=== PATIENT | female | born 1945 | race Caucasian/White ===

== ENCOUNTER → 2019-03-19 | Outpatient (CLI) | payer MEDICARE, OTHER ==
[~2019-03-19] MED LIST: *PREMTA OR; ACET65TA OR; ALRE0.5S OU; BISA5TA OR; CELE1CAP4 OR; CELE1CAP4 PO; COUM1TAB18 OR; COUM2.5T17 PO; CRANPOW2 PO; CRES5TAB OR; DOXY100C PO; GENT0.3G OU; GLUCTAB6 PO; LIDO5DIS EX; LIDO5DIS41 TD; MILKSUS OR; OMEP20CA4 PO; OXYC10TA97 OR; PENT10CA PO; PERC5TAB12 PO; PERC5TAB8 OR; PERC7.5T8 OR; PULM90IN INH; SENN8.6T5 OR; SKEL800T5 OR; SYNT112T OR; TRAM50TA2 OR; TYLENOL ARTHIRITIS PO; VITA200016 PO; VITA200T4 PO; VITAMIN E PO; ZADITOR OU; ZOLO50TA OR; ZOLO50TA PO; [UNRECOGNIZED DRUG - OTHER]; [UNRECOGNIZED DRUG - OTHER] INH; mirilax OR; tylenol arthritis
--- NOTE | 2019-03-19 10:47 | REP ---
HIDA SCAN WITH GALLBLADDER EJECTION FRACTION: Following the intravenous administration of 6.6 mCi of technetium-99m mebrofenin, multiple images of the right upper quadrant are performed every 5 minutes for a period of 1 hour. Radiotracer uptake in the liver is fairly homogeneous. There is visualization of the gallbladder at about 15 minutes post injection. There is biliary to bowel transit at 55 to 60 minutes with no scintigraphic evidence of cholecystitis. At the 1 hour laly 8 ounces of Ensure Enlive is ingested and further imaging performed for 1 hour. Gallbladder ejection fraction is calculated to be 72% which is normal. IMPRESSION: Normal gallbladder ejection fraction. Electronically Signed by Juan David Tirado MD 03/19/2019 03:50 P
== END ==
LOC: M RAD 07:21
PROVIDERS: ATTEND Surgery
DX: R10.9 Unspecified abdominal pain (principal)
CPT/HCPCS: 78227; A9537; J2805

== ENCOUNTER → 2019-05-28 | Outpatient (CLI) | payer MEDICARE, OTHER ==
[~2019-05-28] MED LIST changes: +E-Z-GAS II EFFERVESCENT PACKET (SODIUM BICARB./CITRIC ACID/SIMETHICONE) As Ordered ONE; +E-Z-HD 98% w/w 340GM SUSP BTL As Ordered ONE; +E-Z-PAQUE 96% w/w SUSP 176GM BTL As Ordered ONE; +OMEP1CAP73 PO; -OMEP20CA4 PO
--- NOTE | 2019-05-28 16:20 | REP ---
Esophagram The procedure was performed under the direct supervision of Dr. Sanches. The images were reviewed with Dr. Sanches. A single view PA chest x-ray is submitted as a virtual office assistant film. The superior mediastinal structures are midline. The heart size is within normal limits. The lungs are clear. There is an S-shaped thoracic rotoscoliotic curve. There is an old impaction fracture of the proximal humerus on the right with, likely, chronic dislocation. Liquid barium and gas producing granules were given in the erect position as well as liquid barium in the prone oblique positions in order to perform a double contrast esophagram examination. The oral and pharyngeal stages of deglutition are unremarkable. There are esophageal transport there are tertiary waves demonstrated. There is no esophagitis, stricture, mucosal ring or hiatal hernia. There is gastroesophageal reflux demonstrated to above the level of the lory. Impression: 1. Tertiary waves. 2. There is gastroesophageal reflux demonstrated to above the level of the lory. Of fluoro time data for this examination was lost due to technical error. Electronically Signed by THONY Strong 05/28/2019 03:11 P Electronically Signed by Michi Sanches MD 05/28/2019 04:11 P
== END ==
LOC: M RAD 09:32
PROVIDERS: ATTEND Surgery
DX: K21.9 Gastro-esophageal reflux disease without esophagitis (principal)

== ENCOUNTER 2019-06-22 09:20 | Day surgery (SDC) | payer MEDICARE, OTHER ==
[~2019-06-22] VITALS: Ht 165.1 cm; Wt 68.1 kg
[~2019-06-22 09:20] MED LIST changes: +ACIDTAB3 PO; +BUDE180INH INH; +CELE100C PO; +CETI10CH PO; +CRES5TAB PO; +CVS1000C17 PO; +DOXY-350 PO; -E-Z-GAS II EFFERVESCENT PACKET (SODIUM BICARB./CITRIC ACID/SIMETHICONE) As Ordered ONE; -E-Z-HD 98% w/w 340GM SUSP BTL As Ordered ONE; -E-Z-PAQUE 96% w/w SUSP 176GM BTL As Ordered ONE; +FLON1SPR; +KEFL250C11 PO; +LR 1,000 ML IV ONE; +LevoFLOXacin IV 500 MG in IV 1 EA IV ONE; +META1TAB22 PO; +PRESCAP PO; +QC A650T3 PO; +SALMDISK INH; +SYNT100T PO; +TAGA200T3 PO; +VITA30004 PO; +ZOFR4TAB16 PO; +[UNRECOGNIZED DRUG - CODE] OP
[2019-06-22] MEDS ORDERED: METOCLOPRAMIDE INJ 10MG/2ML VIAL (J2765) As Ordered ONE (09:30)
[2019-06-22] MEDS ORDERED: propofoL 200 MG/20 ML VIAL As Ordered ONE ×2 (09:30→11:42)
[2019-06-22] MEDS ORDERED: LIDOCAINE 2% INJ 100 MG/5 ML SDV (FOR ANES.) As Ordered ONE (09:30)
[2019-06-22] MEDS ORDERED: MIDAZOLAM INJ 2 MG/2 ML VIAL (J2250) As Ordered ONE (09:30)
[2019-06-22] MEDS ORDERED: fentaNYL 100 MCG/2 ML INJECTION (J3010) As Ordered ONE ×2 (09:30→11:27)
[2019-06-22] MEDS ORDERED: ONDANSETRON 4MG/2ML VIAL (J2405) As Ordered ONE (09:30)
[2019-06-22] MEDS ORDERED: ROCURONIUM BROMIDE 50 MG/5 ML VIAL As Ordered ONE (09:30)
[2019-06-22 09:52] LABS: HEMATOCRIT 37.7 % (36.0-47.0); MEAN CORPUSCULAR HEMOGLOBIN 31.5 pg (27.0-33.0); MEAN CORPUSCULAR HGB CONC 31.8 g/dl (32.0-36.5); PLATELET COUNT, AUTOMATED 151 10^3/uL (150-450); RED BLOOD COUNT 3.81 10^6/uL (4.00-5.40); WHITE BLOOD COUNT 5.3 10^3/uL (4.0-10.0)
[2019-06-22 10:21] LABS: BLOOD UREA NITROGEN 21 MG/DL (7-18); CALCIUM LEVEL 8.9 MG/DL (8.8-10.2); CARBON DIOXIDE LEVEL 28 MEQ/L (21-32); CHLORIDE LEVEL 108 MEQ/L (98-107); GLOMERULAR FILTRATION RATE > 60.0 (>39); GLUCOSE, FASTING 90 MG/DL (70-100); POTASSIUM SERUM 3.9 MEQ/L (3.5-5.1); SODIUM LEVEL 141 MEQ/L (136-145)
[2019-06-22] MEDS ORDERED: BUPIVACAINE/EPIN 0.25% 30 ML VIAL As Ordered ONE (10:30)
[2019-06-22] MEDS ORDERED: BUPIVACAINE HCL 0.25% 10 ML VIAL As Ordered ONE (10:31)
[2019-06-22] MEDS ORDERED: BUPIVACAINE LIPOSOME/PF 1.3% 20ML VIAL (13.3MG/ML)(EXPAREL)(C9290 PER1MG) As Ordered ONE (10:31)
--- NOTE | 2019-06-22 10:40 | ECGEPIP ---
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
[2019-06-22] MEDS ORDERED: SUGAMMADEX SODIUM 500 MG/5 ML VIAL (BRIDION) As Ordered ONE (11:22)
[2019-06-22] MEDS ORDERED: KETOROLAC 60 MG/2 ML VIAL (J1885) As Ordered ONE (11:22)
[2019-06-22] MEDS ORDERED: ACETAMINOPHEN 1000MG 100ML IV BTL (OFIRMEV) (J0131 PER 10MG) As Ordered ONE (11:27)
[2019-06-22] MEDS ORDERED: MORPHINE 2 MG/ML 1ML VIAL (J2270) IV PRN (12:15)
[2019-06-22] MEDS ORDERED: fentaNYL 100 MCG/2 ML INJECTION (J3010) IV PRN (12:15)
[2019-06-22] MEDS ORDERED: ONDANSETRON 4MG/2ML VIAL (J2405) IV PRN ×2 (12:15)
[2019-06-22] MEDS ORDERED: PERCOCET 5MG/325MG TAB PO PRN ×2 (12:15)
[2019-06-22] MEDS ORDERED: LR 1,000 ML IV SCH ×2 (12:15)
[2019-06-22] MEDS ORDERED: oxyCODONE 5MG TAB PO PRN (12:30)
--- NOTE | 2019-06-22 12:33 | RO ---
DATE OF PROCEDURE: 06/22/2019 PREOPERATIVE DIAGNOSIS: Umbilical hernia. POSTOPERATIVE DIAGNOSIS: Umbilical hernia. PROCEDURE: Umbilical hernia repair. SURGEON: Dr. Jc Esposito BANQUET PILOT: ANESTHESIA: General endotracheal anesthesia. ESTIMATED BLOOD LOSS: Minimal. FLUIDS: Crystalloid. BRIEF PROCEDURE SUMMARY: The patient was brought to the operating room and was given general anesthesia. After adequate anesthesia and preoperative antibiotics were given, the patient was prepped and draped in the usual sterile fashion. Next, a supraumbilical incision was made with skin knife. Blunt dissection was carried down to fascia and the hernia sac was appreciated right at the umbilicus. This was transected at the level of the fascia. There was some preperitoneal fat that was within this hernia sac. Then I was able to sweep the posterior aspect of the peritoneum with my fifth finger circumferentially and I was able to go up at least a couple inches circumferentially and inferiorly and I was able to palpate the fascia throughout this area and no evidence of additional hernia was appreciated. The fascia itself was mildly attenuated throughout, but there was no fascial defects or evidence of hernias present. The fascial defect then was closed with two [id number] Ethilon sutures. Given the fascial defect was small enough that I could only get my fifth finger in, I felt that I would have to increase the size of the fascial defect to put in additional mesh at this time, such as a ventral patch, etc., in any case given the size of the fascial defect. The closure was performed. Thee subcutaneous tissue was brought together with 3-0 Vicryl and 4-0 Vicryl was used to approximate the skin. Steri-Strips and a dry sterile dressing was applied. The patient was awakened, extubated and brought to recovery room awake, alert and hemodynamically stable. Sponge and needle counts correct x2.
[2019-06-22 14:13] VITALS: BP 136/64
== END 2019-06-22 14:38 | disposition home or self-care (01) ==
LOC: M SDC 09:20
PROVIDERS: ATTEND Surgery
DX: K42.0 Umbilical hernia with obstruction, without gangrene (principal); I10 Essential (primary) hypertension; E78.00 Pure hypercholesterolemia, unspecified; E03.9 Hypothyroidism, unspecified; K58.9 Irritable bowel syndrome, unspecified; K21.9 Gastro-esophageal reflux disease without esophagitis; J44.9 Chronic obstructive pulmonary disease, unspecified; J45.909 Unspecified asthma, uncomplicated; R11.0 Nausea; M19.90 Unspecified osteoarthritis, unspecified site; L71.9 Rosacea, unspecified; F41.9 Anxiety disorder, unspecified; F32.9 Major depressive disorder, single episode, unspecified; Z87.81 Personal history of (healed) traumatic fracture; Z88.8 Allergy status to other drugs, medicaments and biological substances; Z88.5 Allergy status to narcotic agent; Z88.1 Allergy status to other antibiotic agents
CPT/HCPCS: 36415; 49587; 80048; 85027; 88302; 93005; C9290; J0131; J1956; J2250; J2405; J2765; J3010

== ENCOUNTER → 2020-10-19 | Outpatient (REF) | payer MEDICARE, OTHER ==
[~2020-10-19] MED LIST changes: -LR 1,000 ML IV ONE; -LevoFLOXacin IV 500 MG in IV 1 EA IV ONE
== END ==
LOC: M LAB REF 11:54
PROVIDERS: ATTEND Ophthalmology
DX: H02.9 Unspecified disorder of eyelid (principal)

== ENCOUNTER → 2021-01-29 | Outpatient (REF) | payer MEDICARE, OTHER ==
[~2021-01-29] MED LIST changes: -DOXY100C PO; +DOXY100C3 PO; -GENT0.3G OU; +HYPR10GE OU
== END ==
LOC: M LAB REF 09:15
PROVIDERS: ATTEND Surgery
DX: L57.0 Actinic keratosis (principal)

== ENCOUNTER → 2021-11-06 | Outpatient (CLI) | payer MEDICARE, OTHER ==
[~2021-11-06] MED LIST changes: +**SFHN** LIDOCAINE 1% MDV 20ML VIAL ONE; +**SFHN** SODIUM BICARBONATE 8.4% 10MEQ 10ML VIAL ONE; -GLUCTAB6 PO; +GLUCTAB7 PO
[2021-11-06 10:23] VITALS: BP 132/68
== END ==
LOC: M WHCPRO 08:48
PROVIDERS: ATTEND Surgery
DX: C50.411 Malignant neoplasm of upper-outer quadrant of right female breast (principal)
CPT/HCPCS: 19083; 77065; 88305; 88342; G0279

== ENCOUNTER → 2021-11-27 | Outpatient (CLI) | payer MEDICARE, OTHER ==
[~2021-11-27] MED LIST changes: -**SFHN** LIDOCAINE 1% MDV 20ML VIAL ONE; -**SFHN** SODIUM BICARBONATE 8.4% 10MEQ 10ML VIAL ONE; +ACET-910 PO; +ALBU8.5H INH; +BONI1TAB PO; +CLIN150C17 PO; +FAMO40TA3 PO; +FEXO-117 PO; +GUAI100L6 PO; +LOPE1TAB PO; +ONDA-83 PO; +ROBILIQ13 PO; +ROSU5TAB5 PO; +VITA100093 PO
== END ==
LOC: M LABSMTC 09:08
PROVIDERS: ATTEND Anesthesiology
DX: Z11.52 Encounter for screening for COVID-19 (principal)

== ENCOUNTER 2021-11-30 06:58 | Day surgery (SDC) | payer MEDICARE, OTHER ==
[~2021-11-30] VITALS: Ht 165.1 cm; Wt 56.8 kg
[~2021-11-30 06:58] MED LIST changes: +LR 1,000 ML IV ONE
[2021-11-30] MEDS ORDERED: LR 1,000 ML IV SCH ×2 (07:20→12:40)
[2021-11-30] MEDS ORDERED: propofoL 200 MG/20 ML VIAL As Ordered ONE (09:06)
[2021-11-30] MEDS ORDERED: KETOROLAC 60MG 2ML VIAL As Ordered ONE (09:06)
[2021-11-30] MEDS ORDERED: fentaNYL 100 MCG/2 ML INJECTION As Ordered ONE ×3 (09:06→11:31)
[2021-11-30] MEDS ORDERED: ONDANSETRON 4MG 2ML VIAL As Ordered ONE (09:06)
[2021-11-30] MEDS ORDERED: ACETAMINOPHEN 1000MG 100ML IV BTL (OFIRMEV) (J0131 PER 10MG) As Ordered ONE (09:06)
[2021-11-30] MEDS ORDERED: LIDOCAINE 2% 100MG/5ML SDV (FOR ANES.) As Ordered ONE (09:06)
[2021-11-30] MEDS ORDERED: METOCLOPRAMIDE INJ 10MG/2ML VIAL (J2765 PER 1) As Ordered ONE (09:06)
[2021-11-30] MEDS ORDERED: MIDAZOLAM INJ 2MG/2ML VIAL (J2250 PER 1MG) As Ordered ONE (09:07)
[2021-11-30] MEDS ORDERED: LIDOCAINE 1% SDV 30ML VIAL As Ordered ONE (09:41)
[2021-11-30] MEDS ORDERED: BUPIVACAINE HCL 0.25% 30ML VIAL As Ordered ONE (09:41)
[2021-11-30] MEDS ORDERED: fentaNYL 100 MCG/2 ML INJECTION IV PRN (12:40)
[2021-11-30] MEDS ORDERED: ONDANSETRON 4MG 2ML VIAL IV PRN (12:40)
[2021-11-30] MEDS ORDERED: oxyCODONE 5MG TAB PO PRN (12:40)
[2021-11-30] MEDS ORDERED: PROMETHAZINE 25MG/ML 1ML VIAL IM PRN (13:15)
[2021-11-30] MEDS ORDERED: ACETAMINOPHEN TAB 650MG DOSE (2X325MG) PO PRN (13:20)
[2021-11-30] MEDS ORDERED: PERCOCET 5MG/325MG TAB PO PRN (13:20)
[2021-11-30] MEDS ORDERED: PROMETHAZINE 25MG/ML 1ML VIAL IV PRN (13:20)
[2021-11-30 14:28] VITALS: BP 129/61
== END 2021-11-30 14:55 | disposition home or self-care (01) ==
LOC: M SDC 06:58
PROVIDERS: ATTEND Surgery
DX: C50.411 Malignant neoplasm of upper-outer quadrant of right female breast (principal); Z17.0 Estrogen receptor positive status [ER+]; G47.33 Obstructive sleep apnea (adult) (pediatric); K21.9 Gastro-esophageal reflux disease without esophagitis; M19.90 Unspecified osteoarthritis, unspecified site; E78.00 Pure hypercholesterolemia, unspecified; J45.909 Unspecified asthma, uncomplicated; E07.9 Disorder of thyroid, unspecified; F32.A Depression, unspecified; F41.9 Anxiety disorder, unspecified; M25.811 Other specified joint disorders, right shoulder; Z87.81 Personal history of (healed) traumatic fracture; H90.3 Sensorineural hearing loss, bilateral; H69.90 Unspecified Eustachian tube disorder, unspecified ear; R47.02 Dysphasia; Z87.891 Personal history of nicotine dependence; Z91.041 Radiographic dye allergy status; Z91.048 Other nonmedicinal substance allergy status; Z88.0 Allergy status to penicillin; Z88.2 Allergy status to sulfonamides; Z88.1 Allergy status to other antibiotic agents; Z88.5 Allergy status to narcotic agent; Z88.8 Allergy status to other drugs, medicaments and biological substances
CPT/HCPCS: 19301; 38525; 78195; 88305; 88307; 88331; A9520; J0131; J1885; J2405; J2550; J2765; J3010

== ENCOUNTER → 2022-01-16 | Outpatient (CLI) | payer MEDICARE, OTHER ==
[~2022-01-16] MED LIST changes: +ANAS1TAB2 PO; +KENAAER3 TOP; -LR 1,000 ML IV ONE
== END ==
LOC: M ONCR 10:33
PROVIDERS: ATTEND General Practice
DX: C50.411 Malignant neoplasm of upper-outer quadrant of right female breast (principal); G47.33 Obstructive sleep apnea (adult) (pediatric); K21.9 Gastro-esophageal reflux disease without esophagitis; M81.0 Age-related osteoporosis without current pathological fracture; Z80.0 Family history of malignant neoplasm of digestive organs; Z80.1 Family history of malignant neoplasm of trachea, bronchus and lung; Z80.8 Family history of malignant neoplasm of other organs or systems; Z79.1 Long term (current) use of non-steroidal anti-inflammatories (NSAID); Z79.51 Long term (current) use of inhaled steroids; Z79.890 Hormone replacement therapy; Z79.899 Other long term (current) drug therapy; Z87.891 Personal history of nicotine dependence; Z88.0 Allergy status to penicillin; Z88.1 Allergy status to other antibiotic agents; Z88.2 Allergy status to sulfonamides; Z88.5 Allergy status to narcotic agent; Z88.8 Allergy status to other drugs, medicaments and biological substances; Z91.041 Radiographic dye allergy status; Z91.048 Other nonmedicinal substance allergy status

== ENCOUNTER → 2022-01-21 | Outpatient (CLI) | payer MEDICARE, OTHER | LOC: M WHC 14:05 | PROVIDERS: ATTEND General Practice | DX: C50.111 Malignant neoplasm of central portion of right female breast (principal); Z79.899 Other long term (current) drug therapy; M85.88 Other specified disorders of bone density and structure, other site ==

== ENCOUNTER → 2022-06-05 | Outpatient (CLI) | payer MEDICARE, OTHER ==
[~2022-06-05] MED LIST changes: -DOXY-350 PO; +DOXY-444 PO
[2022-06-05 16:11] LABS: BASO # 0.1 10^3/uL (0.0-0.2); BASO % 1.1 % (0.0-1.0); EOS # 0.2 10^3/uL (0.0-0.5); EOS % 5.2 % (0.0-3.0); HEMATOCRIT 39.1 % (36.0-47.0); HEMOGLOBIN 12.5 g/dl (12.0-15.5); LYMPH % 22.9 % (24.0-44.0); MEAN CORPUSCULAR HEMOGLOBIN 31.3 pg (27.0-33.0); MONO # 0.3 10^3/uL (0.0-0.8); MONO % 7.2 % (2.0-8.0); NEUTROPHILS # 2.8 10^3/uL (1.5-8.5); NEUTROPHILS % 63.2 % (36.0-66.0); PLATELET COUNT, AUTOMATED 145 10^3/uL (150-450); RED BLOOD COUNT 3.99 10^6/uL (4.00-5.40); WHITE BLOOD COUNT 4.5 10^3/uL (4.0-10.0)
[2022-06-05 16:28] LABS: ERYTHROCYTE SEDIMENTATION RATE 12 mm/hr (0-30)
[2022-06-05 17:01] LABS: ALBUMIN 3.9 G/DL (3.2-5.2); ALKALINE PHOSPHATASE 71 U/L (46-116); ALT/SGPT 24 U/L (7.0-40); AST/SGOT 21 U/L (<34); BILIRUBIN,TOTAL 0.4 MG/DL (0.3-1.2); BLOOD UREA NITROGEN 18 MG/DL (9-23); CALCIUM LEVEL 8.8 MG/DL (8.3-10.6); CARBON DIOXIDE LEVEL 26 MMOL/L (20-31); CHLORIDE LEVEL 106 MMOL/L (98-107); CREATININE FOR GFR 0.94 MG/DL (0.55-1.30); FREE T4 0.96 NG/DL (0.89-1.76); GLOMERULAR FILTRATION RATE > 60.0 (>39); GLUCOSE, FASTING 96 MG/DL (74-106); POTASSIUM SERUM 3.9 MMOL/L (3.5-5.1); SODIUM LEVEL 139 MMOL/L (136-145); THYROID STIMULATING HORMONE 2.343 uIU/ML (0.55-4.78); VITAMIN B12 LEVEL 298 PG/ML (211-911)
[2022-06-05 19:02] LABS: TOTAL PROTEIN 6.9 G/DL (5.7-8.2)
[2022-06-14 00:07] LABS: ANTI DOUBLE STRAND-DNA AB 7 IU/mL (0-9); ANTINUCLEAR ANTIBODIES DIRECT Positive (Negative); RNP ANTIBODIES >8.0 AI (0.0-0.9); SJOGREN'S ANTI SS-A <0.2 AI (0.0-0.9); SJOGREN'S ANTI SS-B <0.2 AI (0.0-0.9); SMITH ANTIBODIES <0.2 AI (0.0-0.9); VITAMIN B1 LEVEL WHOLE BLOOD 116.1 nmol/L (66.5-200.0); VITAMIN E(ALPHA TOCOPHEROL) 19.5 mg/L (9.0-29.0); VITAMIN E(GAMMA TOCOPHEROL) 0.6 mg/L (0.5-4.9)
== END ==
LOC: M PLALAB 14:24
PROVIDERS: ATTEND Psychiatry & Neurology Neurology
DX: E07.9 Disorder of thyroid, unspecified (principal)

== ENCOUNTER → 2023-01-21 | Outpatient (CLI) | payer MEDICARE, OTHER ==
[~2023-01-21] MED LIST changes: +CARB1DRO OP; +DONE10TA90 PO; +ZOLO100T PO; -[UNRECOGNIZED DRUG - CODE] OP; +[UNRECOGNIZED DRUG - CODE] TOP
== END ==
LOC: M ONCR 10:32
PROVIDERS: ATTEND General Practice
DX: D24.9 Benign neoplasm of unspecified breast (principal); Z92.3 Personal history of irradiation

== ENCOUNTER → 2023-06-26 | Outpatient (REF) | payer MEDICARE, OTHER ==
[2023-06-26 11:45] LABS: APPEARANCE, URINE CLOUDY (CLEAR); BACTERIA, URINE AUTO NEGATIVE (NEGATIVE); BILIRUBIN, URINE AUTO NEGATIVE (NEGATIVE); BLOOD, URINE BLOOD 2+ (NEGATIVE); COLOR, URINE YELLOW (YELLOW); GLUCOSE, URINE (UA) AUTO NEGATIVE (NEGATIVE); KETONE, URINE AUTO NEGATIVE (NEGATIVE); LEUKOCYTE ESTERASE, URINE AUTO 3+ (NEGATIVE); NITRITE, URINE AUTO NEGATIVE (NEGATIVE); PROTEIN, URINE AUTO 1+ mg/dL (NEGATIVE); RBC, URINE AUTO 0 /HPF (0-3); SPECIFIC GRAVITY URINE AUTO 1.012 (1.002-1.035); SQUAMOUS EPITHELIAL CELL UR AU 0 /HPF (0-6); UROBILINOGEN, URINE AUTO 0.2 mg/dL (0.0-2.0); WBC, URINE AUTO 1 /HPF (0-3)
== END ==
LOC: M SMT 10:00
PROVIDERS: ATTEND Nurse Practitioner Family
DX: R32 Unspecified urinary incontinence (principal)

== ENCOUNTER → 2023-07-07 | Outpatient (CLI) | payer MEDICARE, OTHER | LOC: M RAD 10:27 | PROVIDERS: ATTEND Nurse Practitioner Family | DX: N30.90 Cystitis, unspecified without hematuria (principal) ==

== ENCOUNTER → 2023-08-07 | Outpatient (REF) | payer MEDICARE, OTHER ==
[~2023-08-07] MED LIST changes: +DOXY-440 PO; -DOXY-444 PO; +ROSU5TAB40 PO; -ROSU5TAB5 PO
[2023-08-07 13:26] LABS: APPEARANCE, URINE CLEAR (CLEAR); BACTERIA, URINE AUTO NEGATIVE (NEGATIVE); BILIRUBIN, URINE AUTO NEGATIVE (NEGATIVE); BLOOD, URINE BLOOD 1+ (NEGATIVE); COLOR, URINE STRAW (YELLOW); GLUCOSE, URINE (UA) AUTO NEGATIVE (NEGATIVE); KETONE, URINE AUTO NEGATIVE (NEGATIVE); LEUKOCYTE ESTERASE, URINE AUTO NEGATIVE (NEGATIVE); NITRITE, URINE AUTO NEGATIVE (NEGATIVE); PROTEIN, URINE AUTO NEGATIVE (NEGATIVE); RBC, URINE AUTO 1 /HPF (0-3); SPECIFIC GRAVITY URINE AUTO 1.004 (1.002-1.035); SQUAMOUS EPITHELIAL CELL UR AU 0 /HPF (0-6); UROBILINOGEN, URINE AUTO 0.2 mg/dL (0.0-2.0); WBC, URINE AUTO 0 /HPF (0-3)
== END ==
LOC: M SMT 12:18
PROVIDERS: ATTEND Nurse Practitioner Family
DX: N30.90 Cystitis, unspecified without hematuria (principal)